=== PATIENT | male | born 1970 | race Caucasian/White ===

== ENCOUNTER 2022-11-26 17:36 | Emergency (ER) | payer BC, SELFPAY ==
[2022-11-26] VITALS (8 sets, daily range): BP systolic 107–126; BP diastolic 65–86; PULSE 57–115; RESP 14–27; TEMP 35.8; O2SAT 92–99
--- NOTE | 2022-11-26 17:40 | XRR_ITS ---
PROCEDURE INFORMATION: Exam: XR Chest Exam date and time: 11/26/2022 5:57 PM Age: 52 years old Clinical indication: Other: Allergic reaction; Additional info: Dyspnea/cough TECHNIQUE: Imaging protocol: Radiologic exam of the chest. Views: 1 view. COMPARISON: No relevant prior studies available. FINDINGS: Lungs: Unremarkable. No consolidation. Pleural spaces: Unremarkable. No pleural effusion. No pneumothorax. Heart/Mediastinum: Unremarkable. No cardiomegaly. Bones/joints: Unremarkable. XR/XR chest 1V portable 30002 IMPRESSION: No acute findings.
--- NOTE | 2022-11-26 17:41 | ECG_ITS ---
[facility] Test Date: 2022-11-26 Pat Name: Nikunj Thacker Department: Room: Gender: Male Outside Deliverer: : 1970 Requested By: Román Siddiqui Order Number: [id number] Lisa MD: Tarsha Aragon M.D. Measurements Intervals [place] Rate: 96 P: 46 GA: 158 QRS: 56 QRSD: 86 T: 52 QT: 367 QTc: 466 Interpretive Statements SINUS RHYTHM ARTIFACT LEFT ATRIAL ENLARGEMENT [-0.15mV P-WAVE IN V1/V2] No previous ECG available for comparison Electronically Signed On 11-26-2022 21:42:08 CDT by Tarsha Aragon M.D. [id number]
[2022-11-26 17:47] LABS: ABG PCO2 36.9 mmHg (35-45); ABG PH Result 7.39 (7.35-7.45); Arterial Blood Gas Hematocrit 54.7 % (42-52); Base Excess ABG -2.4 mmol/L (-2.0-2.0); Blood Gas Allen Test Pos; Blood Gas Operator Identificat CAK; Blood Gas Sample Site Radial, left; Blood Gas Sample Type Arterial; Carboxyhemoglobin 1.5 %THgb (0.4-20.1); HCO3 ABG 22.1 mmol/L (22-26); HGB O2 Sat 91.9 % (95-100); Ionized Calcium Level - ABG 1.2 mmol/L (1.1-1.4); Methemoglobin 0.4 % (0.4-1.5); Oxygen Device ROOM AIR; Oxygen Saturation ABG 93.7; PO2 ABG 70.6 mmHg (80.0-100.0); Potassium Level - ABG 3.8 mmol/L (3.5-5.0); Total Hemoglobin 17.8 g/dL (14-18)
[2022-11-26 17:48] LABS: Alveolar-Arterial Oxygen Gradi 4.2 mmHg (5-10)
[2022-11-26 18:08] LABS: Basophils % 0.2 %; Eosinophils # 0.1 10^3/uL (0.0-0.8); Eosinophils % 0.9 %; Hematocrit 50.9 % (42.0-52.0); Hemoglobin 17.3 g/dL (11.7-16.6); Lymphocytes # 4.1 10^3/uL (0.8-4.8); Lymphocytes % 28.9 %; Mean Corpuscular Hemoglobin 30.5 pg (28.0-34.0); Mean Corpuscular Volume 89.6 fl (80-94); Mean Platelet Volume 10.2 fL (7.4-10.4); Monocytes # 0.6 10^3/uL (0.2-0.9); Monocytes % 4.4 %; Neutrophils # 9.22 10^3/uL (1.8-7.7); Neutrophils % 65.2 %; Nucleated Red Blood Cells % 0 %; Platelet Count 352 10^3/cmm (130-400); Red Blood Count 5.68 10^6/uL (4.1-5.3); Red Cell Distribution Width 11.9 % (12.1-15.1); White Blood Count 14.1 10^3/uL (4.0-10.0)
--- NOTE | 2022-11-26 18:16 | CTR_ITS ---
PROCEDURE INFORMATION: Exam: CT Head Without Contrast Exam date and time: 11/26/2022 6:33 PM Age: 52 years old Clinical indication: Altered mental status/memory loss; Additional info: AMS TECHNIQUE: Imaging protocol: Computed tomography of the head without contrast. Radiation optimization: All CT scans at this facility use at least one of these dose optimization techniques: automated exposure control; mA and/or kV adjustment per patient size (includes targeted exams where dose is matched to clinical indication); or iterative reconstruction. REPORTING DATA: Count of CT and Cardiac NM exams in prior 12 months: This patient has received 0 known CTs and 0 known cardiac nuclear medicine studies in the 12 months prior to the current study. COMPARISON: No relevant prior studies available. RADIATION DOSE METRICS: Total DLP (mGy-cm): 1185 FINDINGS: Brain: Severe calcified intracranial atherosclerotic vessel disease. Cerebral ventricles: No ventriculomegaly. Paranasal sinuses: Severe left maxillary sinus disease. Severe left ethmoid sinus disease. Mild bilateral frontal sinus disease. Mastoid air cells: Visualized mastoid air cells are well aerated. Bones/joints: Unremarkable. No acute fracture. Soft tissues: Unremarkable. CT/CT head wo con* [id number] IMPRESSION: 1. Severe left maxillary sinus disease. 2. Severe left ethmoid sinus disease. 3. Mild bilateral frontal sinus disease. 4. No acute intracranial findings.
[2022-11-26 18:35] LABS: Acetaminophen < 5.0 ug/mL (10-30); Alanine Aminotransferase 13 U/L (0-41); Albumin Level 4.7 g/dL (3.5-5.2); Alcohol Level < 10 mg/dL (0-10); Alkaline Phosphatase 75 U/L (40-130); Anion Gap 18.8 (5-19); Aspartate Amino Transferase 20 U/L (0-40); Blood Urea Nitrogen 16 mg/dL (6-20); Calcium 9.4 mg/dL (8.5-10.5); Carbon Dioxide 23 mmol/L (22-29); Chloride 103 mmol/L (98-107); Globulin 2.4 g/dL (1.3-4.6); Glomerular Filtration Rate 57.5 mL/min (90-130); Glucose 155 mg/dL (65-115); Osmolality Calculated 296 mOsm/kg (285-295); Potassium 3.8 mmol/L (3.5-5.1); Salicylate < 0.3 mg/dL (3-10); Sodium 141 mmol/L (136-145); Total Bilirubin 0.5 mg/dL (0.15-1.2); Total Protein 7.1 g/dL (6.6-8.7)
--- NOTE | 2022-11-26 18:39 | W.ED.ALLEREA ---
HPI - Allergic Reaction General: Chief complaint: Allergic Reaction Stated complaint: allergic reaction Time Seen by Provider: 11/26/22 17:39 Source: patient and EMS Mode of arrival: EMS Limitations: altered mental status History of Present Illness: HPI narrative: 52-year-old male who was found in his yard by neighbors brought inside his house and called EMS. Per EMS patient has been stung by a hornet and they were concerned he is having allergic reaction he did have a rash he does have a slight rash he is no tachycardia or hypotensive and he is not hypoxic here. He has no wheezing he is confused EMS states that the neighbors stated been confused as well he is able answer some questions for me but not able to get much history from him. They did give him Benadryl and epinephrine in route. Review of Systems General: Reports: ROS unobtainable due to mental status Physical Exam Const: COMMON NORMALS: negative for patient oriented x3 GENERAL APPEARANCE: ill appearing HENMT: COMMON NORMALS: normocephalic and atraumatic HEAD & SCALP: normocephalic and atraumatic Eye: COMMON NORMALS: Equal, round and reactive pupils present and EOMs intact bilaterally PUPIL: Yes Equal, round and reactive pupils present Neck/C-Spine: COMMON NORMALS: full ROM and supple Chest: COMMONS NORMALS: normal inspection of the chest and normal palpation of entire chest wall Resp: COMMON NORMALS: normal respiratory effort, No retractions, No use of accessory muscles and clear to auscultation bilaterally AUSCULTATION: clear to auscultation bilaterally Cardio: COMMON NORMALS: regular rate, regular rhythm and No murmurs present (Cardio) RATE: regular rate RHYTHM: regular rhythm GI: COMMON NORMALS: Normal to inspection, nondistended, normoactive bowel sounds present, Soft to palpation, non-tender and no masses PALPATION: Yes Soft to palpation Extremity: COMMON NORMALS: normal to inspection and full ROM Neuro: COMMON NORMALS: moves all extremities and no focal motor deficits; negative for patient oriented x3 Psych: COMMON NORMALS: cooperative; negative for mental status grossly normal Skin: COMMON NORMALS: no wounds NARRATIVE SKIN EXAM: Rash to trunk no urticaria Course Vital Signs: Vital signs: Vital Signs Temperature 96.4 F L 11/26/22 17:43 Pulse Rate 86 11/26/22 21:19 Respiratory Rate 18 11/26/22 21:19 Blood Pressure 126/86 11/26/22 21:19 Pulse Oximetry 92 11/26/22 21:19 Oxygen Delivery Me thod Room Air 11/26/22 21:00 MDM - Allergic Reaction Medical Decision Making Patient presents after allergic reaction he is awake alert feels much improved he had no chest pain second opponent is elevated likely due to reaction and epinephrine dose I did offer him observation he states he feels much improved like to go home he has been well-appearing here has been ambulating the halls he is tolerating p.o. he is stable for discharge we will place him on EpiPen he is return if worsening. Medical Records I reviewed the patient's medical records. Lab Data I reviewed the patient's lab results. 11/26/22 17:50 11/26/22 17:50 Radiology Impressions Chest X-Ray 11/26/22 17:40 IMPRESSION: No acute findings. Head CT 11/26/22 18:16 IMPRESSION: 1. Severe left maxillary sinus disease. 2. Severe left ethmoid sinus disease. 3. Mild bilateral frontal sinus disease. 4. No acute intracranial findings. Laboratory Results WBC 14.1 10^3/uL (4.0-10.0) H 11/26/22 17:50 RBC 5.68 10^6/uL (4.1-5.3) H 11/26/22 17:50 Hgb 17.3 g/dL (11.7-16.6) H 11/26/22 17:50 Hct 50.9 % (42.0-52.0) 11/26/22 17:50 MCV 89.6 fl (80-94) 11/26/22 17:50 MCH 30.5 pg (28.0-34.0) 11/26/22 17:50 MCHC 34.0 g/dL (30.0-36.0) 11/26/22 17:50 RDW 11.9 % (12.1-15.1) L 11/26/22 17:50 Plt Count 352 10^3/cmm (130-400) 11/26/22 17:50 MPV 10.2 fL (7.4-10.4) 11/26/22 17:50 Neut % (Auto) 65.2 % 11/26/22 17:50 Lymph % (Auto) 28.9 % 11/26/22 17:50 Winston % (Auto) 4.4 % 11/26/22 17:50 Eos % (Auto) 0.9 % 11/26/22 17:50 Baso % (Auto) 0.2 % 11/26/22 17:50 Neut # (Auto) 9.22 10^3/uL (1.8-7.7) H 11/26/22 17:50 Lymph # (Auto) 4.1 10^3/uL (0.8-4.8) 11/26/22 17:50 Winston # (Auto) 0.6 10^3/uL (0.2-0.9) 11/26/22 17:50 Eos # (Auto) 0.1 10^3/uL (0.0-0.8) 11/26/22 17:50 Baso # (Auto) 0.0 10^3/uL (0.0-0.1) 11/26/22 17:50 Nucleated RBC % (auto) 0 % 11/26/22 17:50 Nucleated RBCs # 0.0 /100WBC 11/26/22 17:50 Specimen Type Arterial 11/26/22 17:36 Sample Site Radial, left 11/26/22 17:36 ABG pH 7.39 (7.35-7.45) 11/26/22 17:36 ABG pCO2 36.9 mmHg (35-45) 11/26/22 17:36 ABG pO2 70.6 mmHg (80.0-100.0) L 11/26/22 17:36 ABG HCO3 22.1 mmol/L (22-26) 11/26/22 17:36 ABG O2 Saturation 93.7 11/26/22 17:36 ABG Base Excess -2.4 mmol/L (-2.0-2.0) L 11/26/22 17:36 Lucio Test Pos 11/26/22 17:36 A-a O2 Gradient 4.2 mmHg (5-10) L 11/26/22 17:36 Hematocrit 54.7 % (42-52) H 11/26/22 17:36 Hgb O2 Saturation 91.9 % (95-100) L 11/26/22 17:36 Carboxyhemoglobin 1.5 %THgb (0.4-20.1) 11/26/22 17:36 Methemoglobin 0.4 % (0.4-1.5) 11/26/22 17:36 Total Hemoglobin 17.8 g/dL (14-18) 11/26/22 17:36 Sodium 140.0 mmol/L (131-143) 11/26/22 17:36 Potassium 3.8 mmol/L (3.5-5.0) 11/26/22 17:36 Glucose 201.0 mg/dL (70-115) H 11/26/22 17:36 Ionized Calcium 1.2 mmol/L (1.1-1.4) 11/26/22 17:36 O2 Delivery Device Room air 11/26/22 17:36 FiO2 20.0 % 11/26/22 17:36 Fire Management Technician ID Cak 11/26/22 17:36 Sodium 141 mmol/L (136-145) 11/26/22 17:50 Potassium 3.8 mmol/L (3.5-5.1) 11/26/22 17:50 Chloride 103 mmol/L (98-107) 11/26/22 17:50 Carbon Dioxide 23 mmol/L (22-29) 11/26/22 17:50 Anion Gap 18.8 (5-19) 11/26/22 17:50 BUN 16 mg/dL (6-20) 11/26/22 17:50 Creatinine 1.3 mg/dL (0.7-1.2) H 11/26/22 17:50 GFR Calculation 57.5 mL/min (90-130) L 11/26/22 17:50 Glucose 155 mg/dL (65-115) H 11/26/22 17:50 Calculated Osmolality 296 mOsm/kg (285-295) H 11/26/22 17:50 Calcium 9.4 mg/dL (8.5-10.5) 11/26/22 17:50 Total Bilirubin 0.5 mg/dL (0.15-1.2) 11/26/22 17:50 AST 20 U/L (0-40) 11/26/22 17:50 ALT 13 U/L (0-41) 11/26/22 17:50 Alkaline Phosphatase 75 U/L (40-130) 11/26/22 17:50 Creatine Kinase 147 U/L (39-308) 11/26/22 17:50 Troponin T Baseline 9 ng/L (0-15) 11/26/22 17:50 Troponin T 120 Minute 35.75 ng/L (0-15) H 11/26/22 20:01 Delta Troponin T 26.75 ABS# (0-10) H* 11/26/22 20:01 Total Protein 7.1 g/dL (6.6-8.7) 11/26/22 17:50 Albumin 4.7 g/dL (3.5-5.2) 11/26/22 17:50 Globulin 2.4 g/dL (1.3-4.6) 11/26/22 17:50 Salicylates < 0.3 mg/dL (3-10) L 11/26/22 17:50 Acetaminophen < 5.0 ug/mL (10-30) L 11/26/22 17:50 Ethyl Alcohol < 10 mg/dL (0-10) 11/26/22 17:50 EKG Data EKG 1: I personally reviewed and interpreted this EKG as follows: EKG interpretation date: 11/26/22 EKG interpretation time: 19:46 Interpretation: nsr hr [address] or t wave abnormalities qrs 95 qtc 403 Discharge Plan Discharge Patient Disposition: Home Clinical Impression: Allergic reaction Condition: Stable Prescriptions: New EpiPen 2-Sandeep 0.3 mg/0.3 mL auto-injector 0.3 mg IM Q15M PRN (Reason: anaphylaxis) Qty: 2 0RF Rx Instructions: not to exceed 6 doses per episode Discharge Orders: Discharge ED (Routine); Ordered 11/26/22 Ordered By: Steve Perez Discharge Diet: Advance as tolerated Discharge Activity: Resume usual activity Patient Instructions: General Allergic Reaction (ED) Coding Level of Care Code ED Care Connector for Anil Madsen
[2022-11-26 18:49] LABS: Creatine Phosphokinase 147 U/L (39-308)
[2022-11-26 18:51] LABS: Troponin(5th) Baseline 9 ng/L (0-15)
--- NOTE | 2022-11-26 19:08 | PC.NURSE ---
Pt report recieved from Jana LIRIANO. Rounded on pt, pt awake and alert x4. Pt denies needs at this time.
[2022-11-26] MEDS: ondansetron 2 mg/ML SDV 2 mL 4 MG IVP (19:42)
--- NOTE | 2022-11-26 19:46 | ECG_ITS ---
[facility] Test Date: 2022-11-26 Pat Name: Nikunj Thacker Department: Room: Gender: Male Claims Service Adjustor: : 1970 Requested By: Román Siddiqui Order Number: [id number] Lisa MD: Tarsha Aragon M.D. Measurements Intervals [place] Rate: 82 P: 64 ND: 165 QRS: 50 QRSD: 95 T: 64 QT: 365 QTc: 427 Interpretive Statements SINUS RHYTHM Compared to ECG 11/26/2022 17:42:31 Atrial abnormality no longer present Electronically Signed On 11-26-2022 21:43:52 CDT by Tarsha Aragon M.D. [email or web address] [id number]
[2022-11-26 20:25] LABS: Troponin 5 2HR 35.75 ng/L (0-15)
[2022-11-26 20:27] LABS: Troponin 5 2HR Delta 26.75 ABS# (0-10)
[2022-11-27 09:08] LABS: Glucose Point of Care 170 mg/dL (70-110)
== END 2022-11-26 21:31 | disposition home or self-care (01) ==
PROVIDERS: Family Medicine; Emergency Provider Emergency Medicine
DX: T63.441A Toxic effect of venom of bees, accidental (unintentional), initial encounter (principal)
CPT/HCPCS: 36415; 36416; 36600; 70450; 71045; 80051; 80053; 80307; 82330; 82550; 82805; 82962; 84484; 85025; 93005; 96374; 99285; J2405